=== PATIENT | female | born 1975 | race Two or more races ===

== ENCOUNTER 2020-11-26 15:05 | Emergency (ER) | payer BC ==
[~2020-11-26] VITALS: Ht 154.9 cm; Wt 59.0 kg
== END 2020-11-26 19:26 | disposition home or self-care (01) ==
LOC: ER 15:05
DX: J02.9 Acute pharyngitis, unspecified (principal); R05 Cough; Z03.818 Encounter for observation for suspected exposure to other biological agents ruled out